=== PATIENT | male | born 1970 | race Asian ===

== ENCOUNTER 2020-02-05 08:37 | Emergency (ER) | payer OTHER ==
[~2020-02-05] VITALS: Ht 170.2 cm; Wt 70.8 kg
[2020-02-05 10:56] VITALS: BP 144/86; TEMP 98.7
== END 2020-02-05 10:56 | disposition home or self-care (01) ==
LOC: ED 08:37
DX: S81.851A Open bite, right lower leg, initial encounter (principal); W54.0XXA Bitten by dog, initial encounter; Y92.89 Other specified places as the place of occurrence of the external cause
CPT/HCPCS: 90471; 90715; 96372; 99283; J0690; J1885

== ENCOUNTER 2021-09-18 13:09 | Emergency (ER) | payer OTHER ==
[~2021-09-18] VITALS: Ht 170.2 cm; Wt 74.8 kg
[2021-09-18 13:13] VITALS: TEMP 98.7
[2021-09-18 13:25] VITALS: BP 149/97
[2021-09-18 13:42] LABS: PLATELET COUNT 314 K/uL (142-355)
[2021-09-18 13:52] LABS: POTASSIUM 3.9 mmol/L (3.6-5.2)
[2021-09-18 14:08] LABS: PARTIAL THROMBOPLASTIN TIME 27.1 SECONDS (24.5-33.6)
== END 2021-09-18 14:15 | disposition home or self-care (01) ==
LOC: ED 13:09
PROVIDERS: Hospitalist
DX: R07.89 Other chest pain (principal); R09.1 Pleurisy
CPT/HCPCS: 80053; 82550; 83880; 84484; 85027; 85379; 85610; 85730; 93005; 99284

== ENCOUNTER 2021-09-18 21:15 | Emergency (ER) | payer OTHER | END 2021-09-18 21:36 | disposition home or self-care (01) | LOC: ED 21:15 | DX: R53.1 Weakness (principal) | CPT/HCPCS: 99281 ==

== ENCOUNTER 2023-03-19 08:12 | Emergency (ER) | payer OTHER ==
[~2023-03-19] VITALS: Ht 170.2 cm; Wt 70.3 kg
[2023-03-19 08:27] VITALS: TEMP 97
[2023-03-19 09:24] LABS: PLATELET COUNT 316 K/uL (142-355)
[2023-03-19 09:28] LABS: POTASSIUM 4.1 mmol/L (3.6-5.2)
[2023-03-19 14:39] VITALS: BP 145/81
== END 2023-03-19 14:39 | disposition home or self-care (01) ==
LOC: ED 08:12
PROVIDERS: Family Medicine
DX: K59.00 Constipation, unspecified (principal); R42 Dizziness and giddiness; I10 Essential (primary) hypertension; F17.210 Nicotine dependence, cigarettes, uncomplicated; F19.10 Other psychoactive substance abuse, uncomplicated
CPT/HCPCS: 80053; 80320; 83690; 85027; 99283